=== PATIENT | male | born 1960 | race Caucasian/White ===

== ENCOUNTER 2023-07-12 10:33 | Day surgery (SDC) | payer MEDICARE ==
[2023-07-09 12:19] LABS: BASOPHILS # (AUTO) 0.1 X10'3 (0-0.2); BASOPHILS % (AUTO) 1.2 % (0-1); EOSINOPHILS # (AUTO) 0.1 X10'3 (0-0.9); EOSINOPHILS % (AUTO) 1.1 % (0-6); LYMPHOCYTES # (AUTO) 1.3 X10'3 (1.1-4.8); LYMPHOCYTES % (AUTO) 20.3 % (21-51); MEAN CORPUSCULAR HEMOGLOBIN 30.1 PG (27.0-31.0); MEAN CORPUSCULAR HGB CONC 33.8 g/dL (33.0-36.5); MEAN PLATELET VOLUME 7.5 FL (7.4-10.4); MONOCYTES # (AUTO) 0.7 X10'3 (0-0.9); MONOCYTES % (AUTO) 10.3 % (2-12); NEUTROPHILS # (AUTO) 4.3 X10'3 (1.8-7.7); NEUTROPHILS % (AUTO) 67.1 % (42-75); PRE OP HEMATOCRIT 43.9 % (42.0-52.0); PRE OP HEMOGLOBIN 14.8 g/dL (14.0-17.9); PRE OP PLATELET COUNT 235 X10'3 (140-440); PRE OP WHITE BLOOD COUNT 6.4 10'3 (4.8-10.8); RED BLOOD COUNT 4.93 X10'6 (4.70-6.10); RED CELL DISTRIBUTION WIDTH 14.2 % (11.5-14.5)
[2023-07-09 12:32] LABS: ALBUMIN 3.9 G/DL (3.4-5.0); ALBUMIN/GLOBULIN RATIO 1.2 (1.1-1.5); ALKALINE PHOSPHATASE 90 IU/L (46-116); BLOOD UREA NITROGEN 15 MG/DL (7-18); BUN/CREATININE RATIO 17.4 (10.0-20.0); CALCIUM 9.1 MG/DL (8.5-10.1); CHLORIDE 102 MMOL/L (99-107); CREATININE 0.86 MG/DL (0.60-1.10); PRE OP ALT 22 U/L (30-65); PRE OP ANION GAP 9 (8-16); PRE OP AST 15 U/L (10-37); PRE OP BILIRUB, TOTAL 0.5 MG/DL (0.0-1.0); PRE OP GLUCOSE 100 MG/DL (70-104); PRE OP POTASSIUM 4.2 MMOL/L (3.4-5.1); PRE OP SODIUM 139 MMOL/L (135-145); TOTAL CARBON DIOXIDE 28.1 MMOL/L (24-32); TOTAL PROTEIN 7.1 G/DL (6.4-8.2); eGFR 90 ML/MIN
[~2023-07-12] VITALS: Ht 175.3 cm; Wt 112.9 kg
[2023-07-12] VITALS (13 sets, daily range): BP systolic 109–140; BP diastolic 73–87; PULSE 54–71; RESP 12–18; TEMP 97.7; O2SAT 94–99
[~2023-07-12 10:33] MED LIST: CARV25TA2 PO; DOCUMENT DATE & TIME OF BETA-BLOCKER PO ONE; LEVO112T5 PO; LISI10TA27 PO; PROZ10C PO; famotidine 20mg tablet PO ONE; ringers solution, lacted 1,000 ML IV SCH
[2023-07-12] MEDS ORDERED: proCHLORperazine 10 MG/2 ml inj IV PRN (12:05)
[2023-07-12] MEDS ORDERED: ondansetron/PF 4mg/2ml inj IV PRN (12:05)
[2023-07-12] MEDS ORDERED: acetaminophen 1,000mg/100ml IV 100 ML IV PRN (12:05)
[2023-07-12] MEDS ORDERED: ringers solution, lacted 1,000 ML IV SCH (12:05)
[2023-07-12] MEDS ORDERED: labetalol 20mg/4ml (5mg/ml) syringe IV PRN (12:05)
[2023-07-12] MEDS ORDERED: morphine 2 MG/ML inj. syringe IV PRN (12:05)
[2023-07-12] MEDS ORDERED: hydrALAZINE 20mg/ml inj. IV PRN (12:05)
[2023-07-12] MEDS ORDERED: HYDROmorphone/PF 0.2 MG/ML SYRINGE IV PRN (12:05)
[2023-07-12] MEDS ORDERED: morphine 4 MG/ML inj SYRINge IV PRN (12:05)
[2023-07-12] MEDS ORDERED: LIDOCAINE 4% (40MG/ML) topical solution 50ml **BRONCH ONLY ONE (13:59)
[2023-07-12] MEDS ORDERED: epiNEPHrine 1 MG/ML 1 ml ampule **BRONCH ONLY ONE (13:59)
[2023-07-12] MEDS ORDERED: sevoflurane 250ml liquid IH ONE (14:00)
[2023-07-12] MEDS ORDERED: midazolam 1 mg/ML 2ml injection ONE (14:09)
[2023-07-12] MEDS ORDERED: fentaNYL/PF 50MCG/1 ML 2ML syringe ONE (14:09)
[2023-07-12] MEDS ORDERED: ondansetron/PF 4mg/2ml inj ONE (14:20)
[2023-07-12] MEDS ORDERED: rocuronium 10mg/ml inj IV ONE (14:20)
[2023-07-12] MEDS ORDERED: propofol inj 20 ML IV ONE (14:20)
[2023-07-12] MEDS ORDERED: dexamethasone sod phosphate 4mg/ml inj. ONE (14:20)
[2023-07-12] MEDS ORDERED: LIDOcaine 1%/PF 5ML 10 MG/ML VIAL ONE ×2 (14:20)
[2023-07-12] MEDS ORDERED: neostigmine methylsulfate 1 MG/ML 10ml vial ONE (14:50)
[2023-07-12] MEDS ORDERED: glycopyrrolate 0.2mg/ml inj ONE (14:51)
--- NOTE | 2023-07-12 15:04 | NUR ---
Received from OR via [facility], accompanied by Anesthesiologist DR. ALVAREZ and report given by Anesthesiolgist AND OR NURSE. PT ARRIVED DROWSY ON 10L OF 02 VIA MASK. VSS. 20G IV TO LEFT HAND. PT CAME TO RECOVERY AFTER HAVING ION PROCEDURE DONE. WILL CONTINUE TO MONITOR. Addendum: 07/12/23 at 1545 by Claudia Hsieh RN Amended: Links added.
[2023-07-12] MEDS: HYDROmorphone/PF 0.2 MG/ML SYRINGE IV PRN ×2 (15:26→15:36)
--- NOTE | 2023-07-12 15:57 | NUR ---
PT INITIALLY COMPLAINED OF 6/10 SHARP PAIN IN CHEST AREA AT "TUMOR SITE" IS WHAT PT DESCRIBED. 2 DOSES OF DILAUDID WERE GIVEN AND PAIN HAS BEEN RELIEVED AND IS NOW A 3/10. PT SHARED THAT HE HAS HAD PAIN IN THIS AREA PRIOR TO PROCEDURE AND TAKES ASA AT HOME FOR PAIN. STEAMFITTER SHOWS NORMAL SR WITH HR IN 50s. WILL CONTINUE TO MONITOR AND ASSESS.
[2023-07-12] MEDS ORDERED: HYDROcodone/acetaminophen 10/325mg tab PO ONE (16:25)
--- NOTE | 2023-07-12 16:54 | NUR ---
Patient stable for discharge per MD orders. All discharge paperwork was reviewed with patient and all questions, comments, and concerns were answered at this time. Patient was able to safely transfer from gurney to wheelchair. IV D/CD. No complaints of pain OR nausea. Patient was transferred out to private vehicle to family with all personal belongings without incident. Addendum: 07/12/23 at 1657 by Claudia Hsieh RN Amended: Links added.
== END 2023-07-12 16:54 | disposition home or self-care (01) ==
LOC: PAS 10:33
PROVIDERS: ATTEND Internal Medicine Critical Care Medicine
DX: R91.8 Other nonspecific abnormal finding of lung field (principal); C34.32 Malignant neoplasm of lower lobe, left bronchus or lung; J98.4 Other disorders of lung; I10 Essential (primary) hypertension; F32.A Depression, unspecified; M19.90 Unspecified osteoarthritis, unspecified site; E03.9 Hypothyroidism, unspecified; Z96.612 Presence of left artificial shoulder joint; Z96.653 Presence of artificial knee joint, bilateral; Z98.890 Other specified postprocedural states; Z95.0 Presence of cardiac pacemaker; Z79.899 Other long term (current) drug therapy
CPT/HCPCS: 31623; 31628; 31629; 36415; 71045; 71250; 80053; 82948; 85025; 93005; 93306; 94760; J0131; J1100; J1170; J2250; J2405; J2704; J2710; J3010; J3490; J7120; Z7506; Z7508; Z7512; 31622; 31624; 31625; 31626; 31627; 31653; 31654; A4618; J0171

== ENCOUNTER 2023-09-13 05:34 | Inpatient (IN) | payer MEDICARE ==
[2023-09-09 12:44] LABS: BASOPHILS # (AUTO) 0.1 X10'3 (0-0.2); BASOPHILS % (AUTO) 0.9 % (0-1); EOSINOPHILS # (AUTO) 0.1 X10'3 (0-0.9); EOSINOPHILS % (AUTO) 1.3 % (0-6); LYMPHOCYTES # (AUTO) 1.4 X10'3 (1.1-4.8); LYMPHOCYTES % (AUTO) 22.2 % (21-51); MEAN CORPUSCULAR HEMOGLOBIN 30.7 PG (27.0-31.0); MEAN CORPUSCULAR HGB CONC 33.7 g/dL (33.0-36.5); MEAN CORPUSCULAR VOLUME 91.3 FL (78-98); MEAN PLATELET VOLUME 7.6 FL (7.4-10.4); MONOCYTES # (AUTO) 0.7 X10'3 (0-0.9); NEUTROPHILS # (AUTO) 4.2 X10'3 (1.8-7.7); NEUTROPHILS % (AUTO) 64.6 % (42-75); PRE OP HEMATOCRIT 42.7 % (42.0-52.0); PRE OP HEMOGLOBIN 14.4 g/dL (14.0-17.9); PRE OP PLATELET COUNT 201 X10'3 (140-440); PRE OP WHITE BLOOD COUNT 6.5 10'3 (4.8-10.8); RED BLOOD COUNT 4.68 X10'6 (4.70-6.10); RED CELL DISTRIBUTION WIDTH 14.5 % (11.5-14.5)
[2023-09-09 12:57] LABS: PRE OP PROTIME 10.6 SECONDS (9.0-12.0)
[2023-09-09 13:05] LABS: ALBUMIN 3.7 G/DL (3.4-5.0); ALBUMIN/GLOBULIN RATIO 1.1 (1.1-1.5); ALKALINE PHOSPHATASE 87 IU/L (46-116); BLOOD UREA NITROGEN 14 MG/DL (7-18); BUN/CREATININE RATIO 15.4 (10.0-20.0); CALCIUM 9.1 MG/DL (8.5-10.1); CHLORIDE 104 MMOL/L (99-107); CREATININE 0.91 MG/DL (0.60-1.10); PRE OP ALT 26 U/L (30-65); PRE OP ANION GAP 4 (8-16); PRE OP AST 15 U/L (10-37); PRE OP BILIRUB, TOTAL 0.6 MG/DL (0.0-1.0); PRE OP GLUCOSE 97 MG/DL (70-104); PRE OP POTASSIUM 4.1 MMOL/L (3.4-5.1); PRE OP SODIUM 138 MMOL/L (135-145); THYROID STIMULATING HORMONE 1.68 ulU/ml (0.34-4.50); TOTAL CARBON DIOXIDE 29.6 MMOL/L (24-32); TOTAL PROTEIN 7.1 G/DL (6.4-8.2); eGFR 85 ML/MIN
[2023-09-09 13:09] LABS: BILIRUBIN,URINE NEGATIVE (Neg); CLARITY,URINE SLIGHTLY CLOUDY (Clear); COLOR,URINE YELLOW (Yellow); GLUCOSE, URINE NEGATIVE (Neg); KETONES,URINE NEGATIVE (Neg); LEUKOCYTE ESTERASE ,URINE NEGATIVE (Neg); NITRITES, URINE NEGATIVE (Neg); OCCULT BLOOD,URINE NEGATIVE (Neg); PROTEIN,URINE NEGATIVE (Neg); UROBILINOGEN,URINE 0.2 E.U/dL (0.2-1.0)
[2023-09-09 13:27] LABS: UA COLLECTION TYPE CLN CATCH MIDSTREAM
[2023-09-09 13:28] LABS: RBC,URINE NONE SEEN /HPF (0-2); WBC,URINE 0-4 /HPF (0-4)
[2023-09-09 13:29] LABS: BACTERIA,URINE NONE SEEN /HPF (Neg); MUCUS STRANDS NONE SEEN /LPF (Neg); SQUAMOUS EPITHELIAL CELL,UR FEW /LPF (FEW)
[~2023-09-13] VITALS: Ht 175.3 cm; Wt 103.0 kg
[2023-09-13] VITALS (26 sets, daily range): BP systolic 111–153; BP diastolic 56–90; PULSE 56–87; RESP 13–22; TEMP 98.5; O2SAT 95–99
[~2023-09-13 05:34] MED LIST changes: -DOCUMENT DATE & TIME OF BETA-BLOCKER PO ONE; -famotidine 20mg tablet PO ONE; -ringers solution, lacted 1,000 ML IV SCH
[2023-09-13] MEDS: cefazolin 2gm/D5W 100mL 100 ML IV ONE (05:46)
[2023-09-13] MEDS: famotidine 20mg tablet PO ONE (06:02)
[2023-09-13] MEDS: ringers solution, lacted 1,000 ML IV SCH (06:02)
[2023-09-13] MEDS ORDERED: iohexol 300mg/ml 100ml inj. ONE (06:44)
[2023-09-13] MEDS ORDERED: midazolam 1 mg/ML 2ml injection ONE ×2 (07:52)
[2023-09-13] MEDS ORDERED: fentaNYL /PF 50mcg/ml 5ml ampule ONE (07:53)
[2023-09-13] MEDS ORDERED: propofol inj 20 ML IV ONE (07:53)
[2023-09-13] MEDS ORDERED: rocuronium 10mg/ml inj IV ONE ×4 (07:56→12:25)
[2023-09-13] MEDS ORDERED: ondansetron/PF 4mg/2ml inj ONE (08:31)
[2023-09-13] MEDS ORDERED: NORepinephrine 8 MG in NS 250 ML BAG (32 mcg/ml) IV ONE (08:31)
[2023-09-13] MEDS ORDERED: sevoflurane 250ml liquid IH ONE (08:31)
[2023-09-13] MEDS: BUPIVACAINE liposomal/PF 13.3 MG/ML vial IM ONE (11:04)
[2023-09-13] MEDS: BUPIVAcaine 2.5mg/ml inj 50ml vial (contains preservative) ONE (11:05)
[2023-09-13] MEDS ORDERED: morphine 2 MG/ML inj. syringe IV PRN (11:20)
[2023-09-13] MEDS ORDERED: proCHLORperazine 10 MG/2 ml inj IV PRN (11:20)
[2023-09-13] MEDS ORDERED: ringers solution, lacted 1,000 ML IV SCH (11:20)
[2023-09-13] MEDS ORDERED: ondansetron/PF 4mg/2ml inj IV PRN ×2 (11:20→15:20)
[2023-09-13] MEDS ORDERED: meperidine/PF 25mg/ml syringe IV PRN ×2 (11:20)
[2023-09-13] MEDS ORDERED: ceFAZolin 1000mg inj ONE ×2 (13:36)
[2023-09-13] MEDS ORDERED: dexamethasone sod phosphate 4mg/ml inj. ONE (13:36)
[2023-09-13] MEDS ORDERED: fentaNYL/PF 50MCG/1 ML 2ML syringe ONE (14:15)
[2023-09-13] MEDS ORDERED: sugammadex 200mg/2ml injection IV ONE (15:07)
[2023-09-13] MEDS ORDERED: metoclopramide 5 mg/ml inj IV PRN (15:20)
[2023-09-13] MEDS ORDERED: albuterol 2.5 MG/3 ML nebule NEB PRN (15:20)
[2023-09-13] MEDS: morphine 4 MG/ML inj SYRINge IV PRN (15:27)
[2023-09-13 15:33] LABS: ISTAT ANION GAP 13 (8-12); ISTAT BUN 16 mg/dL (7-18); ISTAT CL 103 mmol/L (99-107); ISTAT CREATININE 0.8 mg/dL (0.8-1.3); ISTAT GLUCOSE 118 mg/dL (70-104); ISTAT HGB 14.3 g/dl (14.0-17.9); ISTAT Hct 42 %PCV (42-52); ISTAT IONIZED CALCIUM 1.16 mmol/L (1.03-1.32); ISTAT K 4.8 mmol/L (3.5-5.1); ISTAT NA 139 mmol/L (135-145); ISTAT TOTAL CO2 23 mmol/L (24-32); ISTAT eGFR > 90 ML/MIN
[2023-09-13 15:35] LABS: ABG BASE EXCESS -2.3 mmol/L (-2.0-2.0); ABG HCO3 23.5 mmol/L (22.0-26.0); ABG OXYGEN SATURATION 98.7 % (94-97); ABG PCO2 (T) 43.3 mmHg (35.0-48.0); ABG PO2 (T) 125.2 mmHg (75.0-100.0); FCOHb 0.6 % (0.0-3.9); FHHb 1.3 % (0.0-5.0); FO2Hb 98.1 % (94-97); MODE MASK - SIMPLE; PATIENT TEMPERATURE 36.6; PEEP 10 cm H2O; TOTAL HEMOGLOBIN 14.7 G/dl (14.0-17.9)
[2023-09-13] MEDS: acetaminophen 1,000mg/100ml IV 100 ML IV ONE (15:55)
[2023-09-13] MEDS: ketorolac trometh. 30mg/ml inj. IV ONE (15:55)
[2023-09-13] MEDS: meperidine/PF 25mg/ml syringe IV PRN (16:02)
[2023-09-13] MEDS: morphine 2 MG/ML inj. syringe IV PRN (17:39)
[2023-09-13] MEDS: potassium Cl 20mEq in D5-NS 1,000 ML IV SCH (17:46)
[2023-09-13] MEDS: ceFAZolin inj. 1,000 MG in dextrose 5%-water 50ml 50 ML IV SCH (17:49)
[2023-09-13] MEDS: dextrose 5%-normal saline 1,000 ML IV SCH (17:50)
[2023-09-13] MEDS: albuterol 2.5 MG/3 ML nebule NEB SCH (19:37)
[2023-09-13] MEDS: gabapentin 300mg capsule PO SCH (20:16)
[2023-09-13] MEDS: HYDROmorphone inj. 0.5 MG/0.5 ML DISP.SYRIN IV PRN (20:47)
[2023-09-13] MEDS: HYDROcodone/acetaminophen 10/325mg tab PO PRN ×2 (20:47→23:51)
[2023-09-14] VITALS (34 sets, daily range): BP systolic 90–127; BP diastolic 46–82; PULSE 73–91; RESP 11–24; O2SAT 89–97
[2023-09-14 03:16] LABS: BASOPHILS % (AUTO) 0.1 % (0-1); EOSINOPHILS % (AUTO) 0 % (0-6); HEMATOCRIT 38.8 % (42.0-52.0); HEMOGLOBIN 12.9 g/dl (14.0-17.9); LYMPHOCYTES # (AUTO) 0.6 X10'3 (1.1-4.8); LYMPHOCYTES % (AUTO) 5.3 % (21-51); MEAN CORPUSCULAR HEMOGLOBIN 30.3 PG (27.0-31.0); MEAN CORPUSCULAR HGB CONC 33.2 g/dL (33.0-36.5); MEAN CORPUSCULAR VOLUME 91.4 FL (78-98); MEAN PLATELET VOLUME 7.6 FL (7.4-10.4); MONOCYTES # (AUTO) 1.5 X10'3 (0-0.9); MONOCYTES % (AUTO) 12.6 % (2-12); NEUTROPHILS # (AUTO) 9.9 X10'3 (1.8-7.7); PLATELET COUNT 200 X10'3 (140-440); RED BLOOD COUNT 4.25 X10'6 (4.70-6.10); RED CELL DISTRIBUTION WIDTH 14.3 % (11.5-14.5); WHITE BLOOD COUNT 12.1 X10'3 (4.5-11.0)
[2023-09-14 03:50] LABS: ALANINE AMINOTRANSFERASE 20 U/L (12-78); ALBUMIN 3.1 G/DL (3.4-5.0); ALBUMIN/GLOBULIN RATIO 0.9 (1.1-1.5); ALKALINE PHOSPHATASE 60 IU/L (46-116); ANION GAP 8 (8-16); ASPARTATE AMINO TRANSFERASE 30 U/L (10-37); BILIRUBIN,TOTAL 0.8 MG/DL (0.1-1.0); BLOOD UREA NITROGEN 19 MG/DL (7-18); CALCIUM 7.1 MG/DL (8.5-10.1); CHLORIDE 102 MMOL/L (99-107); CREATININE 1.12 MG/DL (0.60-1.10); GLUCOSE 123 MG/DL (70-104); PHOSPHORUS 4.3 MG/DL (2.3-4.5); POTASSIUM 4.6 MMOL/L (3.5-5.1); SODIUM 137 MMOL/L (135-145); TOTAL CARBON DIOXIDE 27.3 MMOL/L (24-32); TOTAL PROTEIN 6.4 G/DL (6.4-8.2); eCRCL 69 ML/MIN; eGFR 67 ML/MIN
[2023-09-15] VITALS (36 sets, daily range): BP systolic 97–144; BP diastolic 53–90; PULSE 58–150; RESP 12–26; O2SAT 91–99
[2023-09-15 02:43] LABS: BASOPHILS % (AUTO) 0.3 % (0-1); EOSINOPHILS % (AUTO) 0.1 % (0-6); HEMOGLOBIN 12.7 g/dl (14.0-17.9); LYMPHOCYTES # (AUTO) 1.1 X10'3 (1.1-4.8); LYMPHOCYTES % (AUTO) 9.2 % (21-51); MEAN CORPUSCULAR HEMOGLOBIN 30.9 PG (27.0-31.0); MEAN CORPUSCULAR HGB CONC 33.5 g/dL (33.0-36.5); MEAN CORPUSCULAR VOLUME 92.2 FL (78-98); MEAN PLATELET VOLUME 7.7 FL (7.4-10.4); MONOCYTES # (AUTO) 1.7 X10'3 (0-0.9); MONOCYTES % (AUTO) 14.4 % (2-12); NEUTROPHILS # (AUTO) 8.9 X10'3 (1.8-7.7); PLATELET COUNT 188 X10'3 (140-440); RED BLOOD COUNT 4.12 X10'6 (4.70-6.10); RED CELL DISTRIBUTION WIDTH 14.3 % (11.5-14.5); WHITE BLOOD COUNT 11.7 X10'3 (4.5-11.0)
[2023-09-15 03:04] LABS: ALANINE AMINOTRANSFERASE 19 U/L (12-78); ALBUMIN/GLOBULIN RATIO 0.8 (1.1-1.5); ALKALINE PHOSPHATASE 66 IU/L (46-116); ANION GAP 5 (8-16); ASPARTATE AMINO TRANSFERASE 26 U/L (10-37); BILIRUBIN,TOTAL 0.9 MG/DL (0.1-1.0); BLOOD UREA NITROGEN 19 MG/DL (7-18); BUN/CREATININE RATIO 17.3 (10.0-20.0); CALCIUM 7.9 MG/DL (8.5-10.1); CHLORIDE 100 MMOL/L (99-107); GLUCOSE 127 MG/DL (70-104); PHOSPHORUS 2.7 MG/DL (2.3-4.5); POTASSIUM 4.1 MMOL/L (3.5-5.1); SODIUM 135 MMOL/L (135-145); TOTAL PROTEIN 6.7 G/DL (6.4-8.2); eCRCL 71 ML/MIN; eGFR 68 ML/MIN
[2023-09-15] MEDS: amiodarone 150mg/dext, iso-os 100 ML IV ONE ×3 (06:40→18:00)
[2023-09-15 06:45] LABS: MAGNESIUM 1.8 MG/DL (1.5-2.4)
[2023-09-15] MEDS: amiodarone/D5 360MG/200ML BAG 200 ML IV SCH ×2 (07:11→17:15)
[2023-09-15] MEDS: magnesium 2GM in 50ml NS 50 ML IV ONE (09:19)
[2023-09-15] MEDS ORDERED: FLO0.4C PO (13:53)
[2023-09-15] MEDS: magnesium hydroxide 30ml (MOM) UD suspension PO PRN (14:35)
[2023-09-15] MEDS: carVEDilol 12.5mg tablet PO SCH (18:00)
[2023-09-16] VITALS (34 sets, daily range): BP systolic 95–143; BP diastolic 44–81; PULSE 50–70; RESP 11–21; O2SAT 79–100
[2023-09-16 06:09] LABS: BASOPHILS % (AUTO) 0.5 % (0-1); EOSINOPHILS # (AUTO) 0.1 X10'3 (0-0.9); EOSINOPHILS % (AUTO) 1.3 % (0-6); HEMATOCRIT 37.1 % (42.0-52.0); HEMOGLOBIN 12.5 g/dl (14.0-17.9); LYMPHOCYTES # (AUTO) 1.2 X10'3 (1.1-4.8); LYMPHOCYTES % (AUTO) 12.5 % (21-51); MEAN CORPUSCULAR HGB CONC 33.7 g/dL (33.0-36.5); MEAN CORPUSCULAR VOLUME 92.1 FL (78-98); MEAN PLATELET VOLUME 7.6 FL (7.4-10.4); MONOCYTES # (AUTO) 1.3 X10'3 (0-0.9); MONOCYTES % (AUTO) 13.8 % (2-12); NEUTROPHILS # (AUTO) 6.6 X10'3 (1.8-7.7); NEUTROPHILS % (AUTO) 71.9 % (42-75); PLATELET COUNT 193 X10'3 (140-440); RED BLOOD COUNT 4.03 X10'6 (4.70-6.10); RED CELL DISTRIBUTION WIDTH 14.2 % (11.5-14.5); WHITE BLOOD COUNT 9.2 X10'3 (4.5-11.0)
[2023-09-16 06:18] LABS: ALANINE AMINOTRANSFERASE 20 U/L (12-78); ALBUMIN 2.8 G/DL (3.4-5.0); ALBUMIN/GLOBULIN RATIO 0.8 (1.1-1.5); ALKALINE PHOSPHATASE 63 IU/L (46-116); ANION GAP 4 (8-16); ASPARTATE AMINO TRANSFERASE 24 U/L (10-37); BILIRUBIN,TOTAL 0.5 MG/DL (0.1-1.0); BLOOD UREA NITROGEN 17 MG/DL (7-18); BUN/CREATININE RATIO 20.5 (10.0-20.0); CALCIUM 8.3 MG/DL (8.5-10.1); CHLORIDE 100 MMOL/L (99-107); CREATININE 0.83 MG/DL (0.60-1.10); GLUCOSE 118 MG/DL (70-104); MAGNESIUM 2.2 MG/DL (1.5-2.4); PHOSPHORUS 2.6 MG/DL (2.3-4.5); POTASSIUM 4.3 MMOL/L (3.5-5.1); SODIUM 135 MMOL/L (135-145); TOTAL CARBON DIOXIDE 30.9 MMOL/L (24-32); TOTAL PROTEIN 6.5 G/DL (6.4-8.2); eCRCL 93 ML/MIN; eGFR > 90 ML/MIN
[2023-09-16] MEDS: magnesium oxide 400mg tablet PO SCH (19:50)
[2023-09-16] MEDS: carVEDilol 12.5mg tablet PO SCH (19:50)
[2023-09-17] VITALS (36 sets, daily range): BP systolic 96–152; BP diastolic 46–89; PULSE 52–89; RESP 7–17; TEMP 97.5–97.8; O2SAT 89–100
[2023-09-17 06:44] LABS: BASOPHILS # (AUTO) 0.1 X10'3 (0-0.2); BASOPHILS % (AUTO) 0.7 % (0-1); EOSINOPHILS # (AUTO) 0.2 X10'3 (0-0.9); EOSINOPHILS % (AUTO) 2.1 % (0-6); HEMATOCRIT 32.7 % (42.0-52.0); HEMOGLOBIN 11.5 g/dl (14.0-17.9); LYMPHOCYTES # (AUTO) 0.8 X10'3 (1.1-4.8); LYMPHOCYTES % (AUTO) 8.8 % (21-51); MEAN CORPUSCULAR HEMOGLOBIN 31.9 PG (27.0-31.0); MEAN CORPUSCULAR VOLUME 91.2 FL (78-98); MEAN PLATELET VOLUME 8.2 FL (7.4-10.4); MONOCYTES # (AUTO) 1.3 X10'3 (0-0.9); MONOCYTES % (AUTO) 14.3 % (2-12); NEUTROPHILS # (AUTO) 6.8 X10'3 (1.8-7.7); NEUTROPHILS % (AUTO) 74.1 % (42-75); PLATELET COUNT 208 X10'3 (140-440); RED BLOOD COUNT 3.59 X10'6 (4.70-6.10); RED CELL DISTRIBUTION WIDTH 13.6 % (11.5-14.5); WHITE BLOOD COUNT 9.2 X10'3 (4.5-11.0)
[2023-09-17 06:50] LABS: ALANINE AMINOTRANSFERASE 19 U/L (12-78); ALBUMIN 2.5 G/DL (3.4-5.0); ALBUMIN/GLOBULIN RATIO 0.6 (1.1-1.5); ALKALINE PHOSPHATASE 57 IU/L (46-116); ANION GAP 4 (8-16); ASPARTATE AMINO TRANSFERASE 23 U/L (10-37); BILIRUBIN,TOTAL 0.8 MG/DL (0.1-1.0); BLOOD UREA NITROGEN 15 MG/DL (7-18); BUN/CREATININE RATIO 18.1 (10.0-20.0); CALCIUM 8.2 MG/DL (8.5-10.1); CHLORIDE 97 MMOL/L (99-107); CREATININE 0.83 MG/DL (0.60-1.10); GLUCOSE 109 MG/DL (70-104); PHOSPHORUS 2.8 MG/DL (2.3-4.5); POTASSIUM 4.4 MMOL/L (3.5-5.1); SODIUM 133 MMOL/L (135-145); TOTAL CARBON DIOXIDE 32.5 MMOL/L (24-32); TOTAL PROTEIN 6.5 G/DL (6.4-8.2); eCRCL 93 ML/MIN; eGFR > 90 ML/MIN
[2023-09-17] MEDS: magnesium citrate 296ml oral solution PO ONE (15:41)
[2023-09-17] MEDS: morphine 4 MG/ML inj SYRINge IV PRN (18:46)
[2023-09-17] MEDS: tamsulosin 0.4mg capsule PO SCH (20:27)
[2023-09-17] MEDS ORDERED: tamsulosin 0.4mg capsule PO SCH (21:00)
[2023-09-18] VITALS (18 sets, daily range): BP systolic 95–115; BP diastolic 50–66; PULSE 55–64; RESP 14–18; TEMP 97.4–98.5; O2SAT 92–100
[2023-09-18 06:33] LABS: BASOPHILS % (AUTO) 0.4 % (0-1); EOSINOPHILS # (AUTO) 0.2 X10'3 (0-0.9); EOSINOPHILS % (AUTO) 2.2 % (0-6); HEMATOCRIT 32.8 % (42.0-52.0); HEMOGLOBIN 11.2 g/dl (14.0-17.9); LYMPHOCYTES # (AUTO) 0.9 X10'3 (1.1-4.8); LYMPHOCYTES % (AUTO) 12.3 % (21-51); MEAN CORPUSCULAR HEMOGLOBIN 31.4 PG (27.0-31.0); MEAN CORPUSCULAR HGB CONC 34.1 g/dL (33.0-36.5); MEAN CORPUSCULAR VOLUME 91.8 FL (78-98); MEAN PLATELET VOLUME 7.4 FL (7.4-10.4); MONOCYTES # (AUTO) 0.8 X10'3 (0-0.9); MONOCYTES % (AUTO) 11.7 % (2-12); NEUTROPHILS # (AUTO) 5.1 X10'3 (1.8-7.7); NEUTROPHILS % (AUTO) 73.4 % (42-75); PLATELET COUNT 198 X10'3 (140-440); RED BLOOD COUNT 3.57 X10'6 (4.70-6.10); RED CELL DISTRIBUTION WIDTH 13.7 % (11.5-14.5)
[2023-09-18 06:47] LABS: ALANINE AMINOTRANSFERASE 21 U/L (12-78); ALBUMIN 2.4 G/DL (3.4-5.0); ALBUMIN/GLOBULIN RATIO 0.6 (1.1-1.5); ALKALINE PHOSPHATASE 63 IU/L (46-116); ANION GAP 4 (8-16); ASPARTATE AMINO TRANSFERASE 27 U/L (10-37); BILIRUBIN,TOTAL 0.5 MG/DL (0.1-1.0); BLOOD UREA NITROGEN 16 MG/DL (7-18); BUN/CREATININE RATIO 18.6 (10.0-20.0); CALCIUM 8.3 MG/DL (8.5-10.1); CHLORIDE 97 MMOL/L (99-107); CREATININE 0.86 MG/DL (0.60-1.10); GLUCOSE 105 MG/DL (70-104); PHOSPHORUS 2.8 MG/DL (2.3-4.5); SODIUM 133 MMOL/L (135-145); TOTAL CARBON DIOXIDE 32.3 MMOL/L (24-32); TOTAL PROTEIN 6.5 G/DL (6.4-8.2); eCRCL 90 ML/MIN; eGFR 90 ML/MIN
[2023-09-19] VITALS (13 sets, daily range): BP systolic 106–128; BP diastolic 53–70; PULSE 53–66; RESP 14–18; TEMP 97.4–98.7; O2SAT 92–98
== END 2023-09-19 18:55 | disposition home or self-care (01) | DRG 164 ==
LOC: PAS IN 05:34 → CICU 2S 17:23 → ORTHO 4S 09-17 21:27
PROVIDERS: ADMIT Surgery; ATTEND Surgery
PROC: 07BD0ZZ Excision of Aortic Lymphatic, Open Approach (ICD-10-PCS; 2023-09-13)
PROC: 07B70ZZ Excision of Thorax Lymphatic, Open Approach (ICD-10-PCS; 2023-09-13)
PROC: 8E0X0CZ Robotic Assisted Procedure of Upper Extremity, Open Approach (ICD-10-PCS; 2023-09-13)
PROC: 02HV33Z Insertion of Infusion Device into Superior Vena Cava, Percutaneous Approach (ICD-10-PCS; 2023-09-13)
PROC: BW241ZZ Computerized Tomography (CT Scan) of Chest and Abdomen using Low Osmolar Contrast (ICD-10-PCS; 2023-09-13)
PROC: 05BY0ZZ Excision of Upper Vein, Open Approach (ICD-10-PCS; 2023-09-13)
PROC: 0BTJ0ZZ Resection of Left Lower Lung Lobe, Open Approach (ICD-10-PCS; principal; 2023-09-13 08:31)
DX: C34.32 Malignant neoplasm of lower lobe, left bronchus or lung (principal); I42.9 Cardiomyopathy, unspecified; I10 Essential (primary) hypertension; F32.A Depression, unspecified; Z95.810 Presence of automatic (implantable) cardiac defibrillator
CPT/HCPCS: 36415; 36600; 71045; 71260; 80047; 80053; 81001; 82803; 82948; 83735; 84100; 84443; 85018; 85025; 85610; 85730; 86885; 86900; 86901; 86920; 87081; 88305; 88309; 88331; 88332; 94640; 94664; 94668; 94760; 97116; 97161; 97530; A4615; A4618; A5200; A6253; A6258; A6449; A7000; A7048; C1751; C1758; C9290; C9520; G0378; J0131; J0282; J0690; J1100; J1170; J1885; J2175; J2250; J2270; J2405; J2704; J3010; J3475; J3480; J3490; J7040; J7042; J7060; J7120; Q9967